=== PATIENT | female | born 1975 | race Two or more races ===

== ENCOUNTER 2017-12-29 10:31 | Emergency (ER) | payer OTHER ==
[~2017-12-29] VITALS: Ht 167.6 cm; Wt 78.5 kg
[~2017-12-29 10:31] MED LIST: KETO10TA2 PO; ULTRACET PO
[2017-12-29] MEDS ORDERED: NORFLEX100MG PO (13:33)
[2017-12-29] MEDS ORDERED: KETO10TA2 PO (13:33)
== END 2017-12-29 13:50 | disposition home or self-care (01) ==
LOC: ER 10:31
DX: S30.0XXA Contusion of lower back and pelvis, initial encounter (principal); S40.012A Contusion of left shoulder, initial encounter; S10.83XA Contusion of other specified part of neck, initial encounter; W18.39XA Other fall on same level, initial encounter; Y93.89 Activity, other specified; Y92.091 Bathroom in other non-institutional residence as the place of occurrence of the external cause; Y99.8 Other external cause status

== ENCOUNTER 2018-08-18 09:23 | Emergency (ER) | payer OTHER ==
[~2018-08-18] VITALS: Ht 167.6 cm; Wt 77.1 kg
[~2018-08-18 09:23] MED LIST changes: +NORFLEX100MG PO
== END 2018-08-18 14:58 | disposition home or self-care (01) ==
LOC: ER 09:23
DX: M79.18 Myalgia, other site (principal)

== ENCOUNTER 2019-05-03 22:19 | Emergency (ER) | payer OTHER ==
[~2019-05-03] VITALS: Ht 167.6 cm; Wt 79.4 kg
[2019-05-04] MEDS ORDERED: ZEBUTAL 50-3251 EACH PO (01:19)
== END 2019-05-04 01:26 | disposition home or self-care (01) ==
LOC: ER 22:19
DX: R51 Headache (principal)

== ENCOUNTER 2020-01-31 11:31 | Emergency (ER) | payer OTHER ==
[~2020-01-31] VITALS: Ht 167.6 cm; Wt 83.9 kg
[~2020-01-31 11:31] MED LIST changes: +ZEBUTAL 50-3251 EACH PO
[2020-01-31] MEDS ORDERED: NORFLEX100MG PO (15:07)
[2020-01-31] MEDS ORDERED: KETO10TA2 PO (15:07)
[2020-01-31] MEDS ORDERED: CIPRO500 MG PO (15:07)
== END 2020-01-31 15:16 | disposition home or self-care (01) ==
LOC: ER 11:31
DX: M54.5 Low back pain (principal)

== ENCOUNTER 2020-02-08 10:00 | Emergency (ER) | payer OTHER ==
[~2020-02-08] VITALS: Ht 167.6 cm; Wt 83.9 kg
[~2020-02-08 10:00] MED LIST changes: +CIPRO500 MG PO
[2020-02-08] MEDS ORDERED: SKELAXIN800 MG PO (14:33)
[2020-02-08] MEDS ORDERED: VOLTAREN100 GM TOP (14:33)
== END 2020-02-08 14:57 | disposition home or self-care (01) ==
LOC: ER 10:00
DX: M62.830 Muscle spasm of back (principal); R10.31 Right lower quadrant pain

== ENCOUNTER 2020-10-03 05:53 | Inpatient (IN) | payer OTHER ==
[~2020-10-03] VITALS: Ht 167.6 cm; Wt 84.8 kg
[~2020-10-03 05:53] MED LIST changes: +ALEVE220 M1; +SKELAXIN800 MG PO; +VOLTAREN100 GM TOP; +[UNRECOGNIZED DRUG - OTHER] PO
[2020-10-03] MEDS ORDERED: FAMOTIDINE20 MG (09:38)
[2020-10-05] MEDS ORDERED: PYRIDIUM100 M1 PO (07:58)
[2020-10-05] MEDS ORDERED: CEFUROXIME500 MG PO (07:58)
[2020-10-05] MEDS ORDERED: IBUPROFEN800 MG PO (07:58)
[2020-10-05] MEDS ORDERED: ACETAMINOPHEN-1 EAC2 PO (07:59)
[2020-10-05] MEDS ORDERED: COLACE100 MG PO (08:00)
== END 2020-10-05 08:35 | disposition home or self-care (01) | DRG 743 ==
LOC: CIR.AMB 05:53 → O/R 08:54 → OB/GYN 08:54 → CIR.AMB 09:15 → EDSTATUS 10:45 → OB/GYN 10:45 → CIR.AMB 10:45 → OB/GYN 10:52
PROVIDERS: ADMIT Obstetrics & Gynecology; ATTEND Obstetrics & Gynecology
PROC: 0UQF7ZZ Repair Cul-de-sac, Via Natural or Artificial Opening (ICD-10-PCS; 2020-10-03)
PROC: 0TJB8ZZ Inspection of Bladder, Via Natural or Artificial Opening Endoscopic (ICD-10-PCS; 2020-10-03)
PROC: 0UT97ZZ Resection of Uterus, Via Natural or Artificial Opening (ICD-10-PCS; principal; 2020-10-03 09:15)
DX: N72 Inflammatory disease of cervix uteri (principal); D25.1 Intramural leiomyoma of uterus; D25.2 Subserosal leiomyoma of uterus

== ENCOUNTER 2020-11-21 09:27 | Emergency (ER) | payer OTHER ==
[~2020-11-21] VITALS: Ht 167.6 cm; Wt 83.9 kg
[~2020-11-21 09:27] MED LIST changes: +ACETAMINOPHEN-1 EAC2 PO; +CEFUROXIME500 MG PO; +COLACE100 MG PO; +FAMOTIDINE20 MG; +IBUPROFEN800 MG PO; +PYRIDIUM100 M1 PO
== END 2020-11-21 19:16 | disposition home or self-care (01) ==
LOC: ER 09:27
DX: U07.1 COVID-19 (principal); R06.02 Shortness of breath

== ENCOUNTER 2022-03-10 20:01 | Emergency (ER) | payer OTHER ==
[~2022-03-10] VITALS: Ht 167.6 cm; Wt 86.6 kg
== END 2022-03-11 00:18 | disposition home or self-care (01) ==
LOC: ER 20:01
DX: J40 Bronchitis, not specified as acute or chronic (principal); Z88.6 Allergy status to analgesic agent; J45.909 Unspecified asthma, uncomplicated

== ENCOUNTER 2022-07-28 13:00 | Emergency (ER) | payer OTHER ==
[~2022-07-28] VITALS: Ht 167.6 cm; Wt 80.7 kg
== END 2022-07-28 15:29 | disposition home or self-care (01) ==
LOC: ER 13:00
DX: R21 Rash and other nonspecific skin eruption (principal); Z88.5 Allergy status to narcotic agent

== ENCOUNTER 2023-06-02 15:16 | Emergency (ER) | payer OTHER ==
[~2023-06-02] VITALS: Ht 170.2 cm; Wt 79.4 kg
[2023-06-02 17:55] LABS: HEMATOCRIT 43.7 % (36.0-45.00); HEMOGLOBIN 14.3 g/dL (12.0-15.00); MEAN CELL VOLUME 91.4 fL (80.00-100.00); MEAN CORPUSCULAR HEMOGLOBIN 29.8 pg (27.00-32.0); MEAN CORPUSCULAR HGB CONC 32.7 g/dl (32.0-36.0); PLATELET COUNT 323 K/uL (150-450); RED BLOOD COUNT 4.78 M/uL (4.00-6.00); RED CELL DISTRIBUTION WIDTH 12.7 % (11.5-14.5)
[2023-06-02 18:05] LABS: PH,URINE 7.5 (5.0-8.0); URINE APPEARANCE Clear; URINE BACTERIA 2267.7 uL (0.0-1933); URINE BILIRRUBIN Negative (NEGATIVE); URINE BLOOD Negative; URINE COLOR Yellow; URINE EPITHELIAL CELLS 29.7 uL (0.0-38.8); URINE GLUCOSE Negative (NEGATIVE); URINE LEUKOCYTE Negative; URINE NITRATE Negative; URINE PROTEIN Negative (NEGATIVE); URINE RBC 10.4 uL (0.0-20.8); URINE WBC 2.1 uL (0.0-23.2)
[2023-06-02 18:11] LABS: CALCIUM 9.1 mg/dL (8.5-10.1); GFR 59.18; POTASSIUM 3.23 mEq/L (3.5-5.1)
== END 2023-06-02 18:59 | disposition home or self-care (01) ==
LOC: ER 15:16
PROVIDERS: General Practice
DX: R30.0 Dysuria (principal); M54.9 Dorsalgia, unspecified; Z88.8 Allergy status to other drugs, medicaments and biological substances

== ENCOUNTER 2023-06-07 16:19 | Emergency (ER) | payer OTHER ==
[~2023-06-07] VITALS: Ht 170.2 cm; Wt 79.4 kg
[2023-06-07 20:05] LABS: HEMATOCRIT 43.3 % (36.0-45.00); HEMOGLOBIN 14.7 g/dL (12.0-15.00); MEAN CELL VOLUME 90.7 fL (80.00-100.00); MEAN CORPUSCULAR HEMOGLOBIN 30.8 pg (27.00-32.0); MEAN CORPUSCULAR HGB CONC 33.9 g/dl (32.0-36.0); PLATELET COUNT 321 K/uL (150-450); RED BLOOD COUNT 4.77 M/uL (4.00-6.00); RED CELL DISTRIBUTION WIDTH 13.1 % (11.5-14.5)
[2023-06-07 20:15] LABS: CALCIUM 9.2 mg/dL (8.5-10.1); CREATININE SERUM 0.78 mg/dL (0.55-1.02); GFR 78.83; POTASSIUM 4.13 mEq/L (3.5-5.1)
== END 2023-06-07 21:25 | disposition home or self-care (01) ==
LOC: ER 16:19
PROVIDERS: General Practice
DX: R25.2 Cramp and spasm (principal); Z88.8 Allergy status to other drugs, medicaments and biological substances